=== PATIENT | male | born 1980 | race American Indian/Alaskan Native ===

== ENCOUNTER 2021-02-06 15:08 | Emergency (ER) | payer OTHER, SELFPAY ==
--- NOTE | 2021-02-06 15:36 | Emergency Department Report ---
ED Psych HPI - General Chief Complaint: High BP Stated Complaint: HIGH BLOOD PRESSURE Time Seen by Provider: 02/06/21 15:19 Source: patient Mode of arrival: Ambulatory - History of Present Illness Initial Comments: Chief complaint: "I have not been doing the right thing. I really do not want to live anymore." HPI: This is a 40-year-old male with history of hypertension, BMI 55 who presents with depression and elevated blood pressure. Patient has deliberately not taken his blood pressure medications. He was hoping that his blood pressure would just just "take me out". He has multiple social stressors. He explains, "I have a lot going on." After being employed unemployed for 1 year patient has returned back to work. His brought him to the emergency department because she was concerned for his elevated blood pressure. He denies any physical points. No previous history of depression or suicide attempt. MD Complaint: suicidal ideation, feels depressed -: week(s) (Several weeks) Associated Psychiatric Symptoms: depression, suicidal ideation History of same: No Quality: constant Improves With: none Worsens With: none Context: not taking psychiatric Associated Symptoms: denies other symptoms Treatments Prior to Arrival: none If Self Harm: admits thoughts of - Related Data Home Medications Medication Instructions Recorded Confirmed Last Taken hydroCHLOROthiazide [HCTZ] 25 mg PO QDAY 02/07/21 02/07/21 Unknown Previous Rx's Medication Instructions Recorded Last Taken Type Valsartan [Diovan] 80 mg PO DAILY #30 tablet 02/07/21 Unknown Rx amLODIPine 10 mg PO DAILY #30 tablet 02/07/21 Unknown Rx Allergies Allergy/AdvReac Type Severity Reaction Status Date / Time codeine Allergy Unknown Verified 02/06/21 15:20 ED Review of Systems ROS: Stated complaint: HIGH BLOOD PRESSURE Other details as noted in HPI Comment: All other systems reviewed and negative Constitutional: denies: fever, malaise Respiratory: denies: cough, shortness of breath Cardiovascular: denies: chest pain Gastrointestinal: denies: abdominal pain, nausea, vomiting Psychiatric: depression, suicidal thoughts. denies: auditory hallucinations, visual hallucinations, homicidal thoughts ED Past Medical Hx - Past Medical History Previous Medical History?: Yes Hx Hypertension: Yes - Surgical History Past Surgical History?: No - Family History Family history: hypertension - Social History Smoking Status: Never Smoker Substance Use Type: None - Medications Home Medications: Home Medications Medication Instructions Recorded Confirmed Last Taken Type Valsartan [Diovan] 80 mg PO DAILY #30 tablet 02/07/21 Unknown Rx amLODIPine 10 mg PO DAILY #30 tablet 02/07/21 Unknown Rx hydroCHLOROthiazide [HCTZ] 25 mg PO QDAY 02/07/21 02/07/21 Unknown History ED Physical Exam - General Limitations: No Limitations General appearance: alert, in no apparent distress, other (Tearful, flat affect, hesitant to speak) - Head Head exam: Present: atraumatic, normocephalic - Eye Eye exam: Present: normal appearance - ENT ENT exam: Present: mucous membranes moist - Neck Neck exam: Present: normal inspection, full ROM - Respiratory Respiratory exam: Present: normal lung sounds bilaterally. Absent: respiratory distress, wheezes, rales, rhonchi - Cardiovascular Cardiovascular Exam: Present: regular rate, normal rhythm, normal heart sounds. Absent: systolic murmur, diastolic murmur, rubs, gallop - GI/Abdominal GI/Abdominal exam: Present: soft, normal bowel sounds. Absent: distended, tenderness, guarding, rebound - Rectal Rectal exam: Present: deferred - Extremities Exam Extremities exam: Present: normal inspection - Back Exam Back exam: Present: normal inspection - Neurological Exam Neurological exam: Present: alert, oriented X3 - Psychiatric Psychiatric exam: Present: depressed, flat affect, suicidal ideation - Skin Skin exam: Present: warm, dry, intact, normal color. Absent: rash ED Course Vital Signs 02/06/21 02/06/21 02/06/21 15:26 17:50 17:56 Temperature 99.2 F Pulse Rate 81 80 86 Respiratory 19 18 Rate Blood Pressure 185/107 Blood Pressure 180/96 185/107 [Left] O2 Sat by Pulse 99 99 Oximetry 02/06/21 02/06/21 02/06/21 19:15 20:00 21:01 Temperature 98.0 F Pulse Rate 66 Respiratory 18 18 18 Rate Blood Pressure Blood Pressure 154/85 [Left] O2 Sat by Pulse 100 100 Oximetry 02/07/21 08:42 Temperature 98.0 F Pulse Rate 90 Respiratory 20 Rate Blood Pressure Blood Pressure 176/106 [Left] O2 Sat by Pulse 100 Oximetry ED Medical Decision Making - Lab Data Result diagrams: 02/06/21 16:00 02/06/21 16:00 - Medical Decision Making 1. Acute depression suicidal ideation: Patient is medically clear for psychiatric care. Awaiting mental health assessment 3. Hypertensive urgency: No evidence of endorgan damage. Patient given p.o. medication. CBC chemistry serum toxicology all within normal limits. Critical care attestation.: If time is entered above; I have spent that time in minutes in the direct care of this critically ill patient, excluding procedure time. ED Disposition Clinical Impression: Acute depression, Suicidal ideation, Hypertensive urgency Disposition: DC-01 TO HOME OR SELFCARE Is pt being admited?: No Does the pt Need Aspirin: No Condition: Stable Instructions: Living With Depression, Major Depressive Disorder, Adult, [id number], Managing Your Hypertension Additional Instructions: Professional and Agency Contacts To help [facility] Crises (21/02) [place] Crisis Line: Suicide Prevention Line: Crisis Text Line: Text START to [phone] Emergency: 911 Outpatient COMMUNITY Behavioral Health Resources: [facility]: [phone] Tuesday thru Tuesday - 8am - 5pm Call to schedule an assessment for mental health programs OUTPATIENT MENTAL HEALTH RESOURCES [facility], [facility] Saba Richmond MD: [address] [facility] [address] [place] [address] [place] [address] [place] [facility]: [facility] [address] [place] [address] [place] [address] [phone] [facility]: [facility] Healthcare: [address] [place] [address] [address] [place] [address] [place] [address] [facility] [address] [place] [facility]: Lavon Fletcher MD: [address] [facility] [address] [facility] [id number] [facility]: [address] [place], [place] [id number] [phone] [place] CRISIS AND ACCESS LINE: Prescriptions: amLODIPine 10 mg PO DAILY #30 tablet Valsartan [Diovan] 80 mg PO DAILY #30 tablet Referrals: PRIMARY CARE, [Primary Care Provider] - 3-5 Days
[2021-02-06 16:48] LABS: Basophils # (Auto) 0.1 K/mm3 (0.0-0.1); Basophils % (Auto) 1.1 % (0.0-1.8); Eosinophils # (Auto) 0.2 K/mm3 (0.0-0.4); Eosinophils % (Auto) 2.5 % (0.0-4.3); Hematocrit 40.6 % (35.5-45.6); Hemoglobin 12.9 gm/dl (11.8-15.2); Lymphocytes # (Auto) 2.8 K/mm3 (1.2-5.4); Lymphocytes % (Auto) 34.2 % (13.4-35.0); Mean Corpuscular HGB Conc 32 % (32-34); Mean Corpuscular Volume 85 fl (84-94); Monocytes # (Auto) 0.4 K/mm3 (0.0-0.8); Monocytes % (Auto) 4.7 % (0.0-7.3); Platelet Count 290 K/mm3 (140-440); Red Blood Count 4.79 M/mm3 (3.65-5.03); Red Cell Distribution Width 14.5 % (13.2-15.2)
[2021-02-06 17:00] LABS: BUN/Creatinine Ratio 9; Blood Urea Nitrogen 8 mg/dL (9-20); Calcium 9.7 mg/dL (8.4-10.2); Hemolysis Index 5
[2021-02-06 17:39] LABS: Amphetamine Screen,Urine Negative; Benzodiazepines Screen,Urine Negative; Cannabinoid Screen,Urine Negative; Cocaine Screen,Urine Negative; Methadone Screen,Urine Negative; Opiate Screen,Urine Negative
[2021-02-06 17:40] LABS: Bacteria,Urine 1+ /HPF (Negative); Bilirubin,Urine NEG (Negative); Blood,Urine SM (Negative); Color,Urine Straw (Yellow); Mucus,Urine 1+ /HPF; Urobilinogen,Urine < 2.0 mg/dL (<2.0)
[2021-02-06] MEDS ORDERED: ACETAMINOPHEN 500 MG TAB PO ONE (17:51)
[2021-02-06] MEDS: amLODIPine 10 MG TAB PO SCH (17:56)
[2021-02-06] MEDS: VALSARTAN 40 MG TAB PO SCH (18:15)
[2021-02-07 08:43] VITALS: BP 176/106
--- NOTE | 2021-02-07 10:19 | Consultation ---
History of Present Illness - Reason for Consult Consult date: 02/07/21 Reason for consult: Depression - History of Present Psychiatric Illness Per Ed Note: This is a 40-year-old male with history of hypertension, BMI 55 who presents with depression and elevated blood pressure. Patient has deliberately not taken his blood pressure medications. He was hoping that his blood pressure would just just "take me out". He has multiple social stressors. He explains, "I have a lot going on." After being employed unemployed for 1 ye ar patient has returned back to work. His brought him to the emergency department because she was concerned for his elevated blood pressure. He denies any physical points. No previous history of depression or suicide attempt. Misael Vyas is a 40 year old male with no prior psychiatric history and he is naive to psychotropic medications. 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 The patient denies being depressed and denies any current suicidal/homicidal ideation and denies hallucinations. The patient states that he wants to go home to his three children. PAST PSYCHIATRIC HISTORY: Diagnoses: Denies Suicide attempts or Self-harm behavior: Denies Prior psychiatric hospitalizations: Denies Substance Abuse history: Denies Previous psychiatric medications tried: denies Outpatient treatment: Denies PAST MEDICAL HISTORY: None reported or document Family Psychiatric History: None reported or documented SOCIAL HISTORY Marital Status: Living Arrangements: Lives with and three children Employment Status:Employed Access to guns/weapons: denies Education: College History of Abuse: denies Legal History: denies REVIEW OF SYSTEMS Constitutional: Negative for weight loss ENT: Negative for stridor Respiratory: Negative for cough or hemoptysis All other systems reviewed and are negative MENTAL STATUS EXAMINATION General Appearance and Behavior: Age appropriate, wearing appropriate clothes, cooperative, polite with questioning, fair eye contact, calm Cooperation: cooperative Psychomotor Behavior: Psychomotor normal Mood: "good" Affect and affective range: congruent with stated mood Thought Process: goal directed Thought Content: Denies SI Speech: Normal volume, Regular rate and rhythm Suicidal Ideation: Denies Homicidal Ideation: Denies hallucination: Denies Delusions: None elicited Impulse Control: Intact Insight and Judgment: Limited Memory: Intact Attention: attentive, engaging Orientation: Alert and oriented Diagnoses: Treatment Plan PSYCHOTHERAPY: Supportive psychotherapy provided MEDICAL: Per primary team DELIRIUM PRECAUTIONS: Please re-orient patient frequently, keep lights on during the day, and minimize benzodiazepines and opiates as these medications could wor sen patient's confusion. 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 The patient should be compliant with medications, not to use drugs and not to drink alcohol. The patient understands that if suicidal ideas, homicidal ideas or any endangering thoughts/behavior should arise, they should immediately seek for emergent assistance including but not limited to crisis hot line and emergency room. Follow up with outpatient psychiatry and PCP within 7- 14 day post discharge. Please contact with any questions and/or concerns. Thank you for the consult. Case staffed with Dr. Mayes Medications and Allergies Allergies Allergy/AdvReac Type Severity Reaction Status Date / Time codeine Allergy Unknown Verified 02/06/21 15:20 Home Medications Medication Instructions Recorded Confirmed Last Taken Type hydroCHLOROthiazide [HCTZ] 25 mg PO QDAY 02/07/21 02/07/21 Unknown History Active Meds: Active Medications Amlodipine Besylate (Amlodipine 10 Mg Tab) 10 mg PO DAILY [facility] Last Admin: 02/06/21 17:56 Dose: 10 mg Documented by: Valsartan (Valsartan 40 Mg Tab) 80 mg PO DAILY [facility] Last Admin: 02/06/21 18:15 Dose: 80 mg Documented by: Mental Status Exam - Vital signs Last Vital Signs Temp 98.0 F 02/07/21 08:42 Pulse 90 02/07/21 08:42 Resp 20 02/07/21 08:42 BP 176/106 02/07/21 08:42 Pulse Ox 100 02/07/21 08:42 Results Result Diagrams: 02/06/21 16:00 02/06/21 16:00 Abnormal lab results 02/06/21 02/06/21 02/06/21 Range/Units 16:00 16:00 16:00 MCH 27 L (28-32) pg BUN 8 L (9-20) mg/dL Salicylates < 0.3 L (2.8-20.0) mg/dL Acetaminophen (10.0-30.0) ug/mL 02/06/21 Range/Units 16:00 MCH (28-32) pg BUN (9-20) mg/dL Salicylates (2.8-20.0) mg/dL Acetaminophen 5.0 L (10.0-30.0) ug/mL All other labs normal.
[2021-02-07] MEDS: amLODIPine 10 MG TAB PO SCH (11:06)
[2021-02-07] MEDS: VALSARTAN 40 MG TAB PO SCH (11:06)
--- NOTE | 2021-02-07 12:55 | Event Note ---
Date: 02/07/21 Patient has been seen, evaluated, and cleared by psychiatry team. 1013 rescinded inpatient placement is not recommended. Patient denies SI at this time. Patient will be discharged home with outpatient follow-up information.
== END 2021-02-07 13:19 | disposition home or self-care (01) ==
LOC: ED 15:08
DX: F32.9 Major depressive disorder, single episode, unspecified (principal); R45.851 Suicidal ideations; I16.0 Hypertensive urgency; I10 Essential (primary) hypertension; Z20.822 Contact with and (suspected) exposure to COVID-19; Z79.899 Other long term (current) drug therapy; Z88.6 Allergy status to analgesic agent
CPT/HCPCS: 36415; 80048; 80307; 81001; 85025; 99284; U0003; 80320; G0480